=== PATIENT | male | born 1990 | race Asian ===

== ENCOUNTER 2019-10-29 13:51 | Emergency (ER) | payer BC ==
[~2019-10-29] VITALS: Ht 170.2 cm; Wt 81.6 kg
[2019-10-29 14:00] VITALS: BP 152/93
--- NOTE | 2019-10-29 14:30 | NUR ---
Patient discharged to home in stable condition. Written and verbal after care instructions given. Patient verbalizes understanding of instruction. Pt ambulatory with a steady gait
--- NOTE | 2019-10-29 14:30 | NUR ---
COVID SWAB DONE AND SENT TO LAB
== END 2019-10-29 14:31 | disposition home or self-care (01) ==
LOC: ER 13:51
DX: Z20.828 Contact with and (suspected) exposure to other viral communicable diseases (principal)
CPT/HCPCS: 99283; C9803; U0003